=== PATIENT | female | born 1940 | race Caucasian/White ===

== ENCOUNTER 2019-03-10 15:17 | Inpatient (IN) | payer OTHER, SELFPAY ==
[2019-03-10] VITALS (15 sets, daily range): BP systolic 96–162; BP diastolic 46–87; PULSE 81–115; RESP 12–19; TEMP 36.6–37.6; O2SAT 94–99; BMI 25.4
--- NOTE | 2019-03-10 | PATH_ITS ---
[facility] Accession Number: [id number] . 01 Material submitted: . appendix - APPENDIX . 02 Diagnosis: Appendix, Appendectomy: Acute appendicitis with serositis. No evidence of dysplasia or malignancy. MRV/03/14/2019 . 02 Electronically signed: . Yolanda Gilmore MD, Pathologist NPI- [id number] . 01 Gross description: . Received in formalin, labeled appendix, is an intact appendix (length-7.1 cm, diameter-1.0 cm) with perales dull serosa and attached mesoappendix (up to 1.6 cm in depth). The resection margin is received stapled. The specimen is partially covered in dull perales flaky friable exudate. The lumen contains red-brown solid paste-like material. The wall is up to 0.3 cm thick. No nodules, masses or lesions are identified. The resection margin is inked black. Section code: (A1) resection margin en face and three additional district representative serial sections; (A2) one-half of the bivalved tip. ([id number]) /MRV . 02 Pathologist provided ICD-10: K35.80 . 02 CPT . 971854 Performed at: 01 [facility] [address], [place], [place] [id number] MD Duc Mosqueda MD Phone: [phone] Performed at: 02 [facility] [address] [place], [place] [id number] MD Yolanda Gilmore MD Phone: [phone]
--- NOTE | 2019-03-10 15:44 | DI.CT.S_ITS ---
PROCEDURE: CT ABDOMEN PELVIS W CON INDICATIONS: rlq pain, tachy TECHNIQUE: After the administration of intravenous contrast, 5 mm thick sections acquired from the diaphragm to the symphysis. 5 mm coronal and sagittal reformats were acquired. For radiation dose reduction, the following was used: automated exposure control, adjustment of mA and/or kV according to patient size. COMPARISON: [facility], , CHEST 2 VIEW, 09/16/2014, 19:56. FINDINGS: Image quality: Excellent. ABDOMEN: Lung bases: Lung bases are clear. Heart size is normal. A small hiatal hernia is incidentally noted. Solid organs: Liver is normal in size and enhancement. Gallbladder wall is not thickened. Biliary system is non dilated. Pancreas enhances normally. Spleen is normal in size and enhancement. No adrenal nodules. Kidneys demonstrate normal size and enhancement, without hydronephrosis. Simple appearing, nonenhancing bilateral renal cysts are seen, which measure water density. Peritoneum and bowel: In this patient with this given history, scrutiny is given to the appendix and the right lower quadrant. The appendix is abnormal and is fluid filled. It demonstrates a hyperenhancing wall. The appendix is dilated measuring 1 cm across its lumen. An appendicolith can be seen on series 2 image 54. There is surrounding inflammatory change seen. No free air is seen to suggest perforation. No loculated abscess is seen. There is mild wall thickening seen of the adjacent cecal wall and the adjacent distal ileum. No additional bowel wall thickening is seen. A moderate amount of stool is seen within the colon. No dilated loops of small bowel are in. Nodes and vessels: No retroperitoneal or mesenteric adenopathy by size criteria. Aorta and inferior vena cava are normal in size. Atherosclerotic calcification is noted. Miscellaneous: No ventral hernias. PELVIS: Genitourinary: Bladder wall thickness is normal. Miscellaneous: No inguinal hernias or adenopathy. 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 Bones: No suspicious bony lesions. No vertebral body compression fractures. Age-appropriate bony degenerative changes are seen. IMPRESSION: Acute appendicitis. No findings of perforation or abscess can be seen. Reactive wall thickening can be seen of the adjacent distal ileum and cecum. Incidental note is made of: Small hiatal hernia Simple appearing water density renal cysts Pelvic varices Atherosclerotic calcification Note: Findings relayed to MILTON Calderon via nurse Briones at 5:18 PM [place] time on March 10, 2019. Christin Dorado will call back if there any questions. Dictated by: Toby Granados M.D. on 03/10/2019 at 16:12 Approved by: Toby Granados M.D. on 03/10/2019 at 16:20
[2019-03-10 16:06] LABS: Add Manual Diff / Slide Review NO; Basophils Absolute Auto 0 /uL (0-100); Basophils Percent Auto 0.4 % (0-2); Eosinophils Absolute Auto 100 /uL (0-450); Eosinophils Percent Auto 1.7 % (2-4); Hematocrit 41.7 % (36-46); Hemoglobin 14.1 g/dL (12.0-16.0); Lymphocytes Absolute Auto 800 /uL (1100-4500); Lymphocytes Percent Auto 9.2 % (25-40); Mean Corpuscular HGB Conc 33.7 % (30-36); Mean Corpuscular Hemoglobin 29.8 PG (26-34); Mean Corpuscular Volume 88.4 fL (80-100); Monocytes Absolute Auto 700 /uL (0-900); Monocytes Percent Auto 7.9 % (3-14); Neutrophils Absolute Auto 7000 /uL (1500-7000); Neutrophils Percent Auto 80.8 % (50-75); Platelet Count 177 X10^3/uL (150-400); Red Blood Cell Count 4.72 X10^6/uL (4.0-5.2); Red Cell Distribution Width 13.5 % (11.6-14.8); White Blood Cell Count 8.7 X10^3/uL (4.5-11.0)
[2019-03-10] MEDS: SODIUM CHLORIDE 0.9% 1,000 ML 1000 ML IV (16:11)
[2019-03-10 16:18] LABS: Lactate (Lactic Acid) 0.9 mmol/L (0.7-2.1)
[2019-03-10 16:19] LABS: Alanine Aminotransferase 21 IU/L (9-52); Albumin 4.4 g/dL (3.5-5.0); Albumin Globulin Ratio 1.4 (1.0-2.8); Alkaline Phosphatase 50 U/L (38-126); Amylase 83 U/L (30-110); Aspartate Aminotransferase 31 IU/L (14-36); BUN Creatinine Ratio 23.3 (6-22); Bilirubin Total 0.7 mg/dL (0.2-1.3); Blood Urea Nitrogen 14 mg/dL (7-17); Calcium 9.5 mg/dL (8.4-10.2); Carbon Dioxide 24 mmol/L (22-32); Chloride 104 mmol/L (98-107); Estimated Glomerular Filt Rate > 60.0 mL/min (>60); Globulin 3.1 g/dL (1.7-4.1); Glucose 98 mg/dL (80-110); HEMOLYSIS 47 (0-50); Lipase 73 U/L (23-300); Potassium 4.2 mmol/L (3.4-5.1); Sodium 137 mmol/L (137-145); Total Protein 7.5 g/dL (6.3-8.2)
[2019-03-10 16:59] LABS: Procalcitonin < 0.05 ng/mL (<0.5)
--- NOTE | 2019-03-10 17:30 | ED.ABDPAIN ---
HPI - Abdominal Pain <MILTON Calderon-BC - Last Filed: 03/10/19 18:58> General Chief Complaint: Abdominal Pain Stated Complaint: states nasty pain lower right abd pain Time Seen by Provider: 03/10/19 15:32 Source: patient Mode of arrival: ambulatory Limitations: no limitations History of Present Illness HPI narrative: The patient is a 78-year-old female nonsmoker with a remote history of a tubal ligation in the 1970s that resulted in peritonitis who presents with a chief complaint of right lower quadrant pain since last night. She states she started having generalized belly pain that moved to her right lower quadrant last night. She states she is concerned about appendicitis. She states that she last ate a real meal at a p.m., last had spinach at about 10:00 a.m.. She has had 12 oz of water throughout the day but nothing else. She denies any chest pain, shortness of breath. She complains of nausea and general malaise. No vomiting. She had a loose bowel movement this morning. She complains of borderline the fever and chills. She denies any dysuria urgency or frequency. She denies any back pain or flank pain. Related Data Home Medications Medication Instructions Recorded Confirmed [facility] #8 5 tab PO PRN PRN 03/10/19 03/10/19 Osha 1 drp PO PRN PRN 03/10/19 03/10/19 Allergies Allergy/AdvReac Type Severity Reaction Status Date / Time Sulfa (Sulfonamide Allergy Severe Anaphylaxis Verified 03/10/19 15:52 Antibiotics) codeine Allergy Intermediate numb lips Verified 03/10/19 18:11 ALL CODONES... Allergy Unknown Uncoded 03/10/19 15:22 Review of Systems <ADE CalderonBC - Last Filed: 03/10/19 18:58> Review of Systems GENERAL: Denies chills, fatigue, malaise, fever, sweats. HEENT: Denies sinus pain, ear pain, sore throat, difficulty swallowing, dizziness. RESPIRATORY: Denies dyspnea, cough, wheezing, hemoptysis, sputum. CARDIOVASCULAR: Denies chest pain, palpitations, orthopnea, edema, GASTROINTESTINAL: See HPI : Denies dysuria, frequency, incontinence, hematuria, urinary retention. MUSCULOSKELETAL: denies weakness, joint pain, or bony pain SKIN: Denies rash, skin lesions, or other NEUROLOGIC: Denies weakness, headache, numbness, change in speech, confusion, seizures, incoordination. PSYCHIATRIC: No concerning psychosocial issues. 12 point review of systems is negative except for those stated above PFSH <SAMI Calderon - Last Filed: 03/10/19 18:58> Medical History History of pneumonia (Acute) Social History household members: none Smoking Status: Never smoker Social History household members: none Smoking Status: Never smoker Exam <SAMI Calderon - Last Filed: 03/10/19 18:58> Narrative Exam Narrative: GENERAL: This is a well-nourished, well-developed patient, appears to be in pain HEAD: Atraumatic. Normocephalic. No temporal or scalp tenderness. EYES: Pupils equal round and reactive. Extraocular motions intact. No scleral icterus. No injection or drainage. ENT: Nose without bleeding, purulent drainage or septal hematoma. Throat without erythema, tonsillar hypertrophy or exudate. Uvula midline. Airway patent. NECK: Trachea midline. No JVD or lymphadenopathy. Supple, nontender, no meningeal signs. CARDIOVASCULAR: Regular rate and rhythm RESPIRATORY: Clear to auscultation. Breath sounds equal bilaterally. No wheezes, rales, or rhonchi. No cough. No increased respiratory effort. No accessory muscle use. GASTROINTESTINAL: Abdomen tender to palpation right lower quadrant. Active bowel sounds. Guarding noted right lower quadrant. EXTREMITIES: No clubbing, cyanosis, or edema. No joint tenderness, effusion, or edema noted. BACK: Nontender without deformity or crepitance. No flank tenderness. NEURO: AOx3. SKIN: No rash or erythema. Initial Vital Signs Initial Vital Signs: Vital Signs Temperature 99.4 F 03/10/19 15:22 Pulse Rate 115 H 03/10/19 15:22 Respiratory Rate 18 03/10/19 15:22 Blood Pressure 151/87 H 03/10/19 15:22 Pulse Oximetry 98 03/10/19 15:22 <Erickson Rogers DO - Last Filed: 03/11/19 08:25> Initial Vital Signs Initial Vital Signs: Vital Signs Temperature 99.4 F 03/10/19 15:22 Pulse Rate 115 H 03/10/19 15:22 Respiratory Rate 18 03/10/19 15:22 Blood Pressure 151/87 H 03/10/19 15:22 Pulse Oximetry 98 03/10/19 15:22 Course <MILTON Calderon- - Last Filed: 03/10/19 18:58> Orders Ordered: Acetaminophen (Tylenol) 650 mg PO Q6HR PRN PRN Reason: As Needed for Fever/Mild Pain Last Admin: 03/11/19 04:08 Dose: 650 mg Admin: 03/10/19 20:57 Dose: 650 mg Dextrose/Sodium Chloride (Dextrose 5%-0.45% Ns) 1,000 mls @ 75 mls/hr IV CONT [facility] Last Admin: 03/10/19 20:57 Dose: 75 mls/hr Ibuprofen (Advil) 600 mg PO Q6HR PRN PRN Reason: As Needed for Fever/Mild Pain Last Admin: 03/10/19 22:59 Dose: 600 mg Morphine Sulfate (Morphine) 2 mg IV Q4HR PRN PRN Reason: Pain, Moderate (4-6) Last Admin: 03/11/19 08:03 Dose: 2 mg Ondansetron HCl (Zofran) 4 mg IV Q6HR PRN PRN Reason: Nausea And Vomiting Last Admin: 03/11/19 08:05 Dose: 4 mg Ranitidine HCl (Zantac) 150 mg PO BID [facility] Last Admin: 03/10/19 21:24 Dose: 150 mg Discontinued Medications Bupivacaine HCl/Epinephrine Bitart (Sensorcaine 0.5% W/ Epi (Pf)) 30 ml INJ INTRA-OP ONE Stop: 03/10/19 19:16 Last Admin: 03/10/19 19:22 Dose: 20 ml Sodium Chloride 1,000 ml/ (Bacitracin 50,000 unit) 0 ml IRR NOW ONE Stop: 03/10/19 19:16 Last Admin: 03/10/19 19:15 Dose: 1 irrig.soln Fentanyl (Sublimaze) 50 mcg IV Q5MIN PRN PRN Reason: Pain, Moderate (4-6) Last Admin: 03/10/19 20:04 Dose: 50 mcg Hydromorphone HCl (Dilaudid) 0.5 mg IV Q5MIN PRN PRN Reason: Pain, Moderate (4-6) Sodium Chloride (Normal Saline 0.9%) 1,000 mls @ 1,000 mls/hr IV BOLUS ONE Stop: 03/10/19 16:42 Last Infusion: 03/10/19 17:17 Dose: 0 mls/hr Admin: 03/10/19 16:11 Dose: 1,000 mls/hr Piperacillin/Tazobactam/Dextrose (Zosyn) 3.375 gm in 50 mls @ 100 mls/hr IV NOW ONE Stop: 03/10/19 18:09 Last Infusion: 03/10/19 19:11 Dose: 100 mls/hr Admin: 03/10/19 19:02 Dose: 100 mls/hr Lactated Ringer's (Lactated Ringers) 1,000 mls @ 42 mls/hr IV CONT CARL Last Infusion: 03/10/19 20:28 Dose: 0 mls/hr Admin: 03/10/19 18:55 Dose: 42 mls/hr Acetaminophen (Ofirmev) 1,000 mg in 100 mls @ 400 mls/hr IV NOW ONE Stop: 03/10/19 20:09 Last Infusion: 03/10/19 19:35 Dose: 0 mls/hr Admin: 03/10/19 19:15 Dose: 400 mls/hr Morphine Sulfate (Morphine) 2 mg IV NOW ONE Stop: 03/10/19 17:28 Last Admin: 03/10/19 17:48 Dose: 2 mg Morphine Sulfate (Morphine) 2 mg IV Q4HR PRN PRN Reason: Pain, Moderate (4-6) Neomycin/Polymyxin/Bacitracin (Neosporin) 1 each TOP NOW ONE Stop: 03/10/19 19:16 Last Admin: 03/10/19 19:23 Dose: 1 each Ondansetron HCl (Zofran) 4 mg IV NOW ONE Stop: 03/10/19 17:28 Last Admin: 03/10/19 17:48 Dose: 4 mg Ondansetron HCl (Zofran) 4 mg IV NOW PRN PRN Reason: Nausea And Vomiting Oxycodone HCl (Percolone) 5 mg PO Q30MIN PRN PRN Reason: Mild or moderate pain Vital Signs - 8 hr 03/11/19 04:17 Temperature 97.3 F L Pulse Rate 94 H Respiratory Rate 16 Blood Pressure 136/78 Pulse Oximetry 98 <Erickson Rogers DO - Last Filed: 03/11/19 08:25> Orders Ordered: Acetaminophen (Tylenol) 650 mg PO Q6HR PRN PRN Reason: As Needed for Fever/Mild Pain Last Admin: 03/11/19 04:08 Dose: 650 mg Admin: 03/10/19 20:57 Dose: 650 mg Dextrose/Sodium Chloride (Dextrose 5%-0.45% Ns) 1,000 mls @ 75 mls/hr IV [facility] Last Admin: 03/10/19 20:57 Dose: 75 mls/hr Ibuprofen (Advil) 600 mg PO Q6HR PRN PRN Reason: As Needed for Fever/Mild Pain Last Admin: 03/10/19 22:59 Dose: 600 mg Morphine Sulfate (Morphine) 2 mg IV Q4HR PRN PRN Reason: Pain, Moderate (4-6) Last Admin: 03/11/19 08:03 Dose: 2 mg Ondansetron HCl (Zofran) 4 mg IV Q6HR PRN PRN Reason: Nausea And Vomiting Last Admin: 03/11/19 08:05 Dose: 4 mg Ranitidine HCl (Zantac) 150 mg PO BID [facility] Last Admin: 03/10/19 21:24 Dose: 150 mg Discontinued Medications Bupivacaine HCl/Epinephrine Bitart (Sensorcaine 0.5% W/ Epi (Pf)) 30 ml INJ INTRA-OP ONE Stop: 03/10/19 19:16 Last Admin: 03/10/19 19:22 Dose: 20 ml Sodium Chloride 1,000 ml/ (Bacitracin 50,000 unit) 0 ml IRR NOW ONE Stop: 03/10/19 19:16 Last Admin: 03/10/19 19:15 Dose: 1 irrig.soln Fentanyl (Sublimaze) 50 mcg IV Q5MIN PRN PRN Reason: Pain, Moderate (4-6) Last Admin: 03/10/19 20:04 Dose: 50 mcg Hydromorphone HCl (Dilaudid) 0.5 mg IV Q5MIN PRN PRN Reason: Pain, Moderate (4-6) Sodium Chloride (Normal Saline 0.9%) 1,000 mls @ 1,000 mls/hr IV BOLUS ONE Stop: 03/10/19 16:42 Last Infusion: 03/10/19 17:17 Dose: 0 mls/hr Admin: 03/10/19 16:11 Dose: 1,000 mls/hr Piperacillin/Tazobactam/Dextrose (Zosyn) 3.375 gm in 50 mls @ 100 mls/hr IV NOW ONE Stop: 03/10/19 18:09 Last Infusion: 03/10/19 19:11 Dose: 100 mls/hr Admin: 03/10/19 19:02 Dose: 100 mls/hr Lactated Ringer's (Lactated Ringers) 1,000 mls @ 42 mls/hr IV CONT CARL Last Infusion: 03/10/19 20:28 Dose: 0 mls/hr Admin: 03/10/19 18:55 Dose: 42 mls/hr Acetaminophen (Ofirmev) 1,000 mg in 100 mls @ 400 mls/hr IV NOW ONE Stop: 03/10/19 20:09 Last Infusion: 03/10/19 19:35 Dose: 0 mls/hr Admin: 03/10/19 19:15 Dose: 400 mls/hr Morphine Sulfate (Morphine) 2 mg IV NOW ONE Stop: 03/10/19 17:28 Last Admin: 03/10/19 17:48 Dose: 2 mg Morphine Sulfate (Morphine) 2 mg IV Q4HR PRN PRN Reason: Pain, Moderate (4-6) Neomycin/Polymyxin/Bacitracin (Neosporin) 1 each TOP NOW ONE Stop: 03/10/19 19:16 Last Admin: 03/10/19 19:23 Dose: 1 each Ondansetron HCl (Zofran) 4 mg IV NOW ONE Stop: 03/10/19 17:28 Last Admin: 03/10/19 17:48 Dose: 4 mg Ondansetron HCl (Zofran) 4 mg IV NOW PRN PRN Reason: Nausea And Vomiting Oxycodone HCl (Percolone) 5 mg PO Q30MIN PRN PRN Reason: Mild or moderate pain Vital Signs - 8 hr 03/11/19 04:17 Temperature 97.3 F L Pulse Rate 94 H Respiratory Rate 16 Blood Pressure 136/78 Pulse Oximetry 98 MDM - Abdominal Pain <Christin Dorado, QUALITY CONTROL TECH RAW MATERIALS-BC - Last Filed: 03/10/19 18:58> Lab Data Result diagrams: 03/10/19 16:01 03/10/19 16:01 Lab Results 03/10/19 03/10/19 03/10/19 Range/Units 16:01 16:01 16:01 WBC 8.7 (4.5-11.0) X10^3/uL RBC 4.72 (4.0-5.2) X10^6/uL Hgb 14.1 (12.0-16.0) g/dL Hct 41.7 (36-46) % MCV 88.4 (80-100) fL MCH 29.8 (26-34) PG MCHC 33.7 (30-36) % RDW 13.5 (11.6-14.8) % Plt Count 177 (150-400) X10^3/uL Neut % (Auto) 80.8 H (50-75) % Lymph % (Auto) 9.2 L (25-40) % [place] % (Auto) 7.9 (3-14) % Eos % (Auto) 1.7 L (2-4) % Baso % (Auto) 0.4 (0-2) % Neut # (Auto) 7000 (6391-6723) /uL Lymph # (Auto) 800 L (5234-8227) /uL [place] # (Auto) 700 (0-900) /uL Eos # (Auto) 100 (0-450) /uL Baso # (Auto) 0 (0-100) /uL Sodium 137 (137-145) mmol/L Potassium 4.2 (3.4-5.1) mmol/L Chloride 104 (98-107) mmol/L Carbon Dioxide 24 (22-32) mmol/L BUN 14 (7-17) mg/dL Creatinine 0.60 (0.52-1.04) mg/dL Estimated GFR > 60.0 (>60) mL/min BUN/Creatinine Ratio 23.3 H (6-22) Glucose 98 (80-110) mg/dL Lactate (0.7-2.1) mmol/L Calcium 9.5 (8.4-10.2) mg/dL Total Bilirubin 0.7 (0.2-1.3) mg/dL AST 31 (14-36) IU/L ALT 21 (9-52) IU/L Alkaline Phosphatase 50 (38-126) U/L Total Protein 7.5 (6.3-8.2) g/dL Albumin 4.4 (3.5-5.0) g/dL Globulin 3.1 (1.7-4.1) g/dL Albumin/Globulin Ratio 1.4 (1.0-2.8) Amylase 83 (30-110) U/L Lipase 73 (23-300) U/L Procalcitonin < 0.05 (<0.5) ng/mL 03/10/19 Range/Units 16:01 WBC (4.5-11.0) X10^3/uL RBC (4.0-5.2) X10^6/uL Hgb (12.0-16.0) g/dL Hct (36-46) % MCV (80-100) fL MCH (26-34) PG MCHC (30-36) % RDW (11.6-14.8) % Plt Count (150-400) X10^3/uL Neut % (Auto) (50-75) % Lymph % (Auto) (25-40) % [place] % (Auto) (3-14) % Eos % (Auto) (2-4) % Baso % (Auto) (0-2) % Neut # (Auto) (7073-1259) /uL Lymph # (Auto) (8422-1198) /uL [place] # (Auto) (0-900) /uL Eos # (Auto) (0-450) /uL Baso # (Auto) (0-100) /uL Sodium (137-145) mmol/L Potassium (3.4-5.1) mmol/L Chloride (98-107) mmol/L Carbon Dioxide (22-32) mmol/L BUN (7-17) mg/dL Creatinine (0.52-1.04) mg/dL Estimated GFR (>60) mL/min BUN/Creatinine Ratio (6-22) Glucose (80-110) mg/dL Lactate 0.9 (0.7-2.1) mmol/L Calcium (8.4-10.2) mg/dL Total Bilirubin (0.2-1.3) mg/dL AST (14-36) IU/L ALT (9-52) IU/L Alkaline Phosphatase (38-126) U/L Total Protein (6.3-8.2) g/dL Albumin (3.5-5.0) g/dL Globulin (1.7-4.1) g/dL Albumin/Globulin Ratio (1.0-2.8) Amylase (30-110) U/L Lipase (23-300) U/L Procalcitonin (<0.5) ng/mL Point of care testing: Urine Dip Bedside Urine Glucose Negative Bedside Urine Bilirubin - Negative Bedside Urine Ketone - Negative Urine Specific [place] 1.010 Bedside Urine Occult Blood - Negative Bedside Urine pH 7.5 Bedside Urine Protein - Negative Bedside Urine Urobilinogen - Negative Bedside Urine Nitrite - Negative Bedside Urine Leukocytes - Negative Esterase Imaging Data CT scan - abdomen: Radiologist's impression: [address] [address] [address] Scan Report Signed Patient: Julissa Puckett#: [id number] : 2Acct:[id number] Age/Sex: 78 / FDate of Service: 03/10/19 Loc: ED Accession Number: [id number] Procedure: CT abdomen pelvis w con Ordering Provider: Christin Dorado-NOAM PROCEDURE: CT ABDOMEN PELVIS W CON INDICATIONS: rlq pain, tachy TECHNIQUE: After the administration of intravenous contrast, 5 mm thick sections acquired from the diaphragm to the symphysis. 5 mm coronal and sagittal reformats were acquired. For radiation dose reduction, the following was used: automated exposure control, adjustment of mA and/or kV according to patient size. COMPARISON: [facility], , CHEST 2 VIEW, 09/16/2014, 19:56. FINDINGS: Image quality: Excellent. ABDOMEN: Lung bases: Lung bases are clear. Heart size is normal. A small hiatal hernia is incidentally noted. Solid organs: Liver is normal in size and enhancement. Gallbladder wall is not thickened. Biliary system is non dilated. Pancreas enhances normally. Spleen is normal in size and enhancement. No adrenal nodules. Kidneys demonstrate normal size and enhancement, without hydronephrosis. Simple appearing, nonenhancing bilateral renal cysts are seen, which measure water density. Peritoneum and bowel: In this patient with this given history, scrutiny is given to the appendix and the right lower quadrant. The appendix is abnormal and is fluid filled. It demonstrates a hyperenhancing wall. The appendix is dilated measuring 1 cm across its lumen. An appendicolith can be seen on series 2 image 54. There is surrounding inflammatory change seen. No free air is seen to suggest perforation. No loculated abscess is seen. There is mild wall thickening seen of the adjacent cecal wall and the adjacent distal ileum. No additional bowel wall thickening is seen. A moderate amount of stool is seen within the colon. No dilated loops of small bowel are in. Nodes and vessels: No retroperitoneal or mesenteric adenopathy by size criteria. Aorta and inferior vena cava are normal in size. Atherosclerotic calcification is noted. Miscellaneous: No ventral hernias. PELVIS: Genitourinary: Bladder wall thickness is normal. Miscellaneous: No inguinal hernias or adenopathy. 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 Bones: No suspicious bony lesions. No vertebral body compression fractures. Age-appropriate bony degenerative changes are seen. IMPRESSION: Acute appendicitis. No findings of perforation or abscess can be seen. Reactive wall thickening can be seen of the adjacent distal ileum and cecum. Incidental note is made of: Small hiatal hernia Simple appearing water density renal cysts Pelvic varices Atherosclerotic calcification Note: Findings relayed to MILTON Calderon via nurse Briones at 5:18 PM [place] time on March 10, 2019. Christin Dorado will call back if there any questions. Dictated by: Toby Granados M.D. on 03/10/2019 at 16:12 Approved by: Toby Granados M.D. on 03/10/2019 at 16:20 [facility] Narrative Medical decision making narrative: The patient is a 78-year-old female who presents with chief complaint of acute right lower quadrant pain. She does not have an elevated white blood cell count, lactate, procalcitonin. However she is tachycardic and has low-grade temperature. She does have an acute appendicitis on exam. I spoke with Dr. Gonzalez regarding the patient, who stated he would admit the patient bring her surgery. She was given Zosyn in the emergency department per his instructions. She was given small doses of morphine and Zofran for pain. The patient initially repeatedly declined pain medications. Discussed remaining NPO until surgery. Patient is in accordance and has no questions. To OR staff at 19:00 <Erickson Rogers DO - Last Filed: 03/11/19 08:25> Lab Data Lab Results 03/10/19 03/10/19 03/10/19 Range/Units 16:01 16:01 16:01 WBC 8.7 (4.5-11.0) X10^3/uL RBC 4.72 (4.0-5.2) X10^6/uL Hgb 14.1 (12.0-16.0) g/dL Hct 41.7 (36-46) % MCV 88.4 (80-100) fL MCH 29.8 (26-34) PG MCHC 33.7 (30-36) % RDW 13.5 (11.6-14.8) % Plt Count 177 (150-400) X10^3/uL Neut % (Auto) 80.8 H (50-75) % Lymph % (Auto) 9.2 L (25-40) % [place] % (Auto) 7.9 (3-14) % Eos % (Auto) 1.7 L (2-4) % Baso % (Auto) 0.4 (0-2) % Neut # (Auto) 7000 (9403-4096) /uL Lymph # (Auto) 800 L (6755-5073) /uL [place] # (Auto) 700 (0-900) /uL Eos # (Auto) 100 (0-450) /uL Baso # (Auto) 0 (0-100) /uL Sodium 137 (137-145) mmol/L Potassium 4.2 (3.4-5.1) mmol/L Chloride 104 (98-107) mmol/L Carbon Dioxide 24 (22-32) mmol/L BUN 14 (7-17) mg/dL Creatinine 0.60 (0.52-1.04) mg/dL Estimated GFR > 60.0 (>60) mL/min BUN/Creatinine Ratio 23.3 H (6-22) Glucose 98 (80-110) mg/dL Lactate (0.7-2.1) mmol/L Calcium 9.5 (8.4-10.2) mg/dL Total Bilirubin 0.7 (0.2-1.3) mg/dL AST 31 (14-36) IU/L ALT 21 (9-52) IU/L Alkaline Phosphatase 50 (38-126) U/L Total Protein 7.5 (6.3-8.2) g/dL Albumin 4.4 (3.5-5.0) g/dL Globulin 3.1 (1.7-4.1) g/dL Albumin/Globulin Ratio 1.4 (1.0-2.8) Amylase 83 (30-110) U/L Lipase 73 (23-300) U/L Procalcitonin < 0.05 (<0.5) ng/mL 03/10/19 Range/Units 16:01 WBC (4.5-11.0) X10^3/uL RBC (4.0-5.2) X10^6/uL Hgb (12.0-16.0) g/dL Hct (36-46) % MCV (80-100) fL MCH (26-34) PG MCHC (30-36) % RDW (11.6-14.8) % Plt Count (150-400) X10^3/uL Neut % (Auto) (50-75) % Lymph % (Auto) (25-40) % [place] % (Auto) (3-14) % Eos % (Auto) (2-4) % Baso % (Auto) (0-2) % Neut # (Auto) (4116-6160) /uL Lymph # (Auto) (4296-1282) /uL [place] # (Auto) (0-900) /uL Eos # (Auto) (0-450) /uL Baso # (Auto) (0-100) /uL Sodium (137-145) mmol/L Potassium (3.4-5.1) mmol/L Chloride (98-107) mmol/L Carbon Dioxide (22-32) mmol/L BUN (7-17) mg/dL Creatinine (0.52-1.04) mg/dL Estimated GFR (>60) mL/min BUN/Creatinine Ratio (6-22) Glucose (80-110) mg/dL Lactate 0.9 (0.7-2.1) mmol/L Calcium (8.4-10.2) mg/dL Total Bilirubin (0.2-1.3) mg/dL AST (14-36) IU/L ALT (9-52) IU/L Alkaline Phosphatase (38-126) U/L Total Protein (6.3-8.2) g/dL Albumin (3.5-5.0) g/dL Globulin (1.7-4.1) g/dL Albumin/Globulin Ratio (1.0-2.8) Amylase (30-110) U/L Lipase (23-300) U/L Procalcitonin (<0.5) ng/mL Point of care testing: Urine Dip Bedside Urine Glucose Negative Bedside Urine Bilirubin - Negative Bedside Urine Ketone - Negative Urine Specific [place] 1.010 Bedside Urine Occult Blood - Negative Bedside Urine pH 7.5 Bedside Urine Protein - Negative Bedside Urine Urobilinogen - Negative Bedside Urine Nitrite - Negative Bedside Urine Leukocytes - Negative Esterase Discharge Plan Departure Patient Disposition: Admitted As Inpatient Clinical Impression: Appendicitis Qualifiers: Appendicitis type: acute appendicitis Acute appendicitis type: unspecified acute appendicitis type Qualified Code(s): K35.80 - Unspecified acute appendicitis Discharge Date/Time: 03/10/19 19:09 Interventions: ED Discharge Assessment Last Done: 03/10/19 19:09 Admit Date/Time: 03/10/19 17:48 Admit Provider: Andrew Zhang <Erickson Rogers DO - Last Filed: 03/11/19 08:25> Cosign ED Attending Eduin Attestation: I was immediately available in the department for consultation. Documentation has been reviewed. I agree with assessment and plan.
[2019-03-10] MEDS: ONDANSETRON 4 MG/2 ML INJ IV (17:48)
[2019-03-10] MEDS: MORPHINE 2 MG/ML INJ IV (17:48)
--- NOTE | 2019-03-10 18:28 | PM.HP.1 ---
History of Present Illness Date Patient Seen: 03/10/19 Time Patient Seen: 18:28 Chief complaint: states nasty pain lower right abd pain Narrative: 78-year-old white female patient who has had a history of mid abdominal pain for 24 hours now radiated to the right lower quadrant and has a CT scan of the abdomen and pelvis done in the emergency department this afternoon which is consistent with uncomplicated acute appendicitis. She is receiving preoperative antibiotics as therapy and being prepared for urgent appendectomy Patient History Medical History History of pneumonia (Acute) Social History household members: none Smoking Status: Never smoker Family & Social History Social History: household members none Prior Living Arrangements RV Safety & Behavioral: Feels Safe in Current Yes Environment Been Physically Hurt or No Threatened By a Person Suicidal Ideation Description None Suicide Plan Description No Plan Tobacco & Substance use: Smoking Status Never smoker alcohol intake frequency a few times a month Substance Use Type does not use Meds Home Medications Medication Instructions Recorded Confirmed Type [facility] #8 5 tab PO PRN PRN 03/10/19 03/10/19 History Osha 1 drp PO PRN PRN 03/10/19 03/10/19 History Allergies Allergy/AdvReac Type Severity Reaction Status Date / Time Sulfa (Sulfonamide Allergy Severe Anaphylaxis Verified 03/10/19 15:52 Antibiotics) codeine Allergy Intermediate numb lips Verified 03/10/19 18:11 ALL CODONES... Allergy Unknown Uncoded 03/10/19 15:22 Review of Systems Review of Systems All systems reviewed & are unremarkable except as noted in HPI and below Exam Vital Signs (past 8 hours): - 03/10/19 15:22 03/10/19 18:00 Temperature 99.4 F Pulse Rate 115 H 91 H Respiratory Rate 18 12 Blood Pressure 151/87 H Blood Pressure [Left Arm] 162/62 H Pulse Oximetry 98 99 Oxygen Delivery Method Room Air Narrative Exam Narrative: The patient is alert and oriented x3 she has a slight temperature 99.4? Ears nose and throat are normal Neck no adenopathy Lungs are clear with no rales or wheezes Heart regular rhythm no murmur no gallop Abdomen is exquisitely tender in the right lower quadrant with guarding and early rebound tenderness there is positive Rovsing sign The remaining physical is unremarkable Objective Labs Result Diagrams: 03/10/19 16:01 03/10/19 16:01 Labs: Laboratory Results - last 24 hr 03/10/19 03/10/19 03/10/19 16:01 16:01 16:01 WBC 8.7 RBC 4.72 Hgb 14.1 Hct 41.7 MCV 88.4 MCH 29.8 MCHC 33.7 RDW 13.5 Plt Count 177 Neut % (Auto) 80.8 H Lymph % (Auto) 9.2 L Adams % (Auto) 7.9 Eos % (Auto) 1.7 L Baso % (Auto) 0.4 Neut # (Auto) 7000 Lymph # (Auto) 800 L Adams # (Auto) 700 Eos # (Auto) 100 Baso # (Auto) 0 Sodium 137 Potassium 4.2 Chloride 104 Carbon Dioxide 24 BUN 14 Creatinine 0.60 Estimated GFR > 60.0 BUN/Creatinine Ratio 23.3 H Glucose 98 Lactate Calcium 9.5 Total Bilirubin 0.7 AST 31 ALT 21 Alkaline Phosphatase 50 Total Protein 7.5 Albumin 4.4 Globulin 3.1 Albumin/Globulin Ratio 1.4 Amylase 83 Lipase 73 Procalcitonin < 0.05 03/10/19 16:01 WBC RBC Hgb Hct MCV MCH MCHC RDW Plt Count Neut % (Auto) Lymph % (Auto) Adams % (Auto) Eos % (Auto) Baso % (Auto) Neut # (Auto) Lymph # (Auto) Adams # (Auto) Eos # (Auto) Baso # (Auto) Sodium Potassium Chloride Carbon Dioxide BUN Creatinine Estimated GFR BUN/Creatinine Ratio Glucose Lactate 0.9 Calcium Total Bilirubin AST ALT Alkaline Phosphatase Total Protein Albumin Globulin Albumin/Globulin Ratio Amylase Lipase Procalcitonin Assessment & Plan Assessment & Plan narrative: Patient has acute uncomplicated appendicitis with no abscess noted on CT scan she is received IV Zosyn and is being prepared for urgent appendectomy patient understands the nature of her problem and agrees to the plan and urgent surgery and has no further questions Quality VTE Deep Vein Thrombosis/Pulmonary Embolism Present on Admission: No
[2019-03-10] MEDS: LACTATED RINGERS 1,000 ML 42 ML IV (18:55)
[2019-03-10] MEDS: PIPERACILLIN-TAZO 3.375 GM/50 ML FROZ.PIGGY IV (19:02)
[2019-03-10] MEDS: SODIUM CHLORIDE IRRIG SOLUTION 1,000 ML, BACITRACIN 50,000 UNIT IRR (19:15)
[2019-03-10] MEDS: ACETAMINOPHEN IV 1,000 MG/100 ML VIAL 400 MG IV (19:15)
[2019-03-10] MEDS: BUPIVACAINE 0.5% W/ EPI (PF) VIAL 30 ML INJ (19:22)
[2019-03-10] MEDS: NEOMYCIN/POLYMYXIN/BACITRA UD OINT 1 EACH TOP (19:23)
--- NOTE | 2019-03-10 19:34 | SUR.OPER ---
Supine on padded OR bed, head on pillow, arms secured on padded arm boards at <90 degrees abduction, legs uncrossed, safety belt at thigh, tape over blanket over lower legs.
--- NOTE | 2019-03-10 19:39 | PM.OP.1 ---
Operative Date/Time/Diagnoses Date of procedure: 03/10/19 Time of procedure: 19:39 Pre-op diagnosis: Acute uncomplicated appendicitis Post-op diagnosis: same Procedure & Clinicians Procedure: Appendectomy Same procedure as scheduled: Yes Indications: Acute appendicitis Surgeon: Andrew Zhang Click Yes if Unassisted: Yes Anesthesia Type: General Operative Notes Findings: Acute suppurative appendicitis without rupture without abscess Closure Type: primary Specimen(s): other (Appendix and cultures) Estimated Blood Loss (mL): 50 Blood products transfused: none Procedure in detail: Patient was properly identified during surgical pause given a general endotracheal anesthetic prepped and draped in sterile fashion exposure of the right lower quadrant of the abdomen. A standard Yohannes-Isidro incision was made over McBurney's point. The oblique muscles were split and agreed iron fashion the peritoneum was elevated and entered so as to avoid injury to the underlying structures. The cecum was rotated into the wound the appendix was acutely inflamed covered with fibrin and it was cultured there is no abscess. The appendix was elevated the mesoappendix divided between clamps the vessels ligated with 2 0 Vicryl ties the base the appendix was then closed with a TA 30? stapler and the appendix was removed above the staple line which was intact. The pelvis was irrigated with a L of bacitracin containing saline and aspirated dry there was no bleeding and no purulence the peritoneum closed with running 2 0 Vicryl. The fascia closed with 1. Maxon. The subcu irrigated with bacitracin saline. The skin desi dartos was applied 0.5% Marcaine was administered in the subcu space. Sutures very well tolerated. Complications: none Disposition: PACU
[2019-03-10] MEDS: fentaNYL 100 MCG/2 ML INJ 50 MCG IV (20:04)
--- NOTE | 2019-03-10 20:42 | SUR.OPER ---
Stable PACU stay, medicated for pain with Fentanyl, pain to a tolerable level to AC on room air, left with LIANG Meeks and left in stable condition.
--- NOTE | 2019-03-10 20:52 | PC.NURSE ---
Addendum entered by Lizette Baugh R.N. 03/10/19 22:14: Resting quietly in bed with eyes closed. No signs of distress or discomfort. Pt requests scd's be off as they inhibit ability to rest. Pump turned off and pt was encouraged to ankle wave and calf pump while awake. Provided return demonstration. Original Note: Pt to room 213 from O.R. drowsy, but rousable. Rates incisional pain 8/10 while calmly lying in bed. Opens eyes occasionally. Denies nausea. Ice chips provided. Instructed on splinting of abdomen to manage pain. Small amount fresh blood noted on gauze dressing RLQ contained within tegaderm dressing. BL calf scd's in place. Ice to incision. Bowel tones absent with soft and puffy abdomen.
[2019-03-10] MEDS: ACETAMINOPHEN 325 MG TABLET 650 MG PO (20:57)
[2019-03-10] MEDS: DEXTROSE 5%-0.45% NS 1,000 ML 75 ML IV (20:57)
[2019-03-10] MEDS: IBUPROFEN 600 MG TABLET PO (22:59)
[2019-03-11] VITALS (7 sets, daily range): BP systolic 134–169; BP diastolic 60–103; PULSE 66–95; RESP 16–18; TEMP 36.3–37.2; O2SAT 97–100; BMI 25.2
[2019-03-11] MEDS: ACETAMINOPHEN 325 MG TABLET 650 MG PO (04:08)
[2019-03-11] MEDS: MORPHINE 2 MG/ML INJ IV ×2 (08:03→22:41)
[2019-03-11] MEDS: ONDANSETRON 4 MG/2 ML INJ IV ×2 (08:05→22:40)
--- NOTE | 2019-03-11 09:26 | PM.PN.1 ---
Subjective Date Patient Seen: 03/11/19 Time Patient Seen: 09:26 Interval history: Patient is roughly 12 hours post open appendectomy for acute uncomplicated appendicitis. This morning she has considerable nausea and has vomited. She is not passing flatus or stool yet. She has improved with IV Zofran. Exam Vital Signs (past 8 hours): - 03/11/19 04:17 03/11/19 07:35 Temperature 97.3 F L 97.8 F Pulse Rate 94 H 86 Respiratory Rate 16 16 Blood Pressure 136/78 169/74 H Pulse Oximetry 98 98 Oxygen Delivery Method Nasal Cannula Oxygen Flow Rate 2 Narrative Exam Narrative: Patient is resting in bed fairly comfortable now after receiving IV Zofran and morphine. She had vomited earlier. End-stage states that she feels better after that. She is afebrile. Abdomen is somewhat distended. Bowel sounds are quiet. Dressing is dry and intact. Objective Labs Result Diagrams: 03/10/19 16:01 03/10/19 16:01 Labs: Laboratory Results - last 24 hr 03/10/19 03/10/19 03/10/19 16:01 16:01 16:01 WBC 8.7 RBC 4.72 Hgb 14.1 Hct 41.7 MCV 88.4 MCH 29.8 MCHC 33.7 RDW 13.5 Plt Count 177 Neut % (Auto) 80.8 H Lymph % (Auto) 9.2 L Claiborne % (Auto) 7.9 Eos % (Auto) 1.7 L Baso % (Auto) 0.4 Neut # (Auto) 7000 Lymph # (Auto) 800 L Cla[place]orne # (Auto) 700 Eos # (Auto) 100 Baso # (Auto) 0 Sodium 137 Potassium 4.2 Chloride 104 Carbon Dioxide 24 BUN 14 Creatinine 0.60 Estimated GFR > 60.0 BUN/Creatinine Ratio 23.3 H Glucose 98 Lactate Calcium 9.5 Total Bilirubin 0.7 AST 31 ALT 21 Alkaline Phosphatase 50 Total Protein 7.5 Albumin 4.4 Globulin 3.1 Albumin/Globulin Ratio 1.4 Amylase 83 Lipase 73 Procalcitonin < 0.05 03/10/19 16:01 WBC RBC Hgb Hct MCV MCH MCHC RDW Plt Count Neut % (Auto) Lymph % (Auto) Claiborne % (Auto) Eos % (Auto) Baso % (Auto) Neut # (Auto) Lymph # (Auto) Claiborne # (Auto) Eos # (Auto) Baso # (Auto) Sodium Potassium Chloride Carbon Dioxide BUN Creatinine Estimated GFR BUN/Creatinine Ratio Glucose Lactate 0.9 Calcium Total Bilirubin AST ALT Alkaline Phosphatase Total Protein Albumin Globulin Albumin/Globulin Ratio Amylase Lipase Procalcitonin Assessment & Plan Assessment & Plan narrative: Patient has adynamic ileus after appendectomy for uncomplicated appendicitis. I have converted her from an observation bed patient to an admission. I suspect her ileus will resolve soon. We will continue IV fluids. Quality VTE Deep Vein Thrombosis/Pulmonary Embolism Present on Admission: No
[2019-03-11] MEDS: DEXTROSE 5%-0.45% NS 1,000 ML 75 ML IV (10:52)
--- NOTE | 2019-03-11 13:31 | CM.DANOTE ---
Discharge Planning/Care Management DCPlan: assessment: Case received, EMR reviewed, spoke this morning with Dr. Gonzalez re POC and met now with pt. Introduced self and role. Pt is a 78 year old female who admitted yesterday evening with R abdominal pain. She dx with acute appendicitis and taken urgently to OR by Dr. Zhang for an open appendectomy (without rupture or abscess). Dr. Zhang stated this morning that he expected pt to be able to go home but instead he found her nauseated and vomiting and with post op ileus. He said he was keeping her in the hospital and changing her admission status to INPT. (this is now confirmed by UR RN Duc: INPT admission status as of 03/11.) Payer: [employer]. PCP: Dr. Santacruz/Key. Pt states she is beginning to feel better now but was shocked at how poorly she felt this morning. She is able to be up and independent in her room. She confirms her mailing address is a PMB (private mail box) on [address] and that she she lives in a camper and a sailboat. She has friends in [facility] who have fixed up a room for her so that she can recover before returning to her boat. Pt also has friends in [place] who are checking in on her. P: home setting/friends when stable for same. Will follow prn for any d/c needs that may arise. CM Discharge Assessment Start: 03/11/19 13:29 Freq: Status: Active Protocol: Document 03/11/19 13:30 ITV (Rec: 03/11/19 13:31 ITV [id number]) Discharge Planning Assessment Advance Directives? No History Provided By Patient Medical Record Has Patient been admitted in last 30 No days? Prior Living Arrangements RV Household Members none Independent with ADL's Yes Is patient alert and oriented? Yes Whiteboard Updated in Patient Room with Yes name and ext. # of Trucking Manager Review Status In Process Next Review Type Continued Stay Review
--- NOTE | 2019-03-11 14:01 | PC.NURSE ---
1400 Pt resting in bed, has been up in gallegos for ambulation. Pt refuses Lovenox or Zantac. Agrees to be mobile, oob frequently. Inst on use of call light for assistance.
--- NOTE | 2019-03-11 14:32 | PC.NURSE ---
1100 Pt requests to keep IVF off, agrees to keep the saline lock though. Pt states taking in plenty of fluids orally.
--- NOTE | 2019-03-11 17:37 | PC.NURSE ---
Addendum entered by Lizette Baugh R.N. 03/11/19 22:24: Pt reinforces to FUEL CELL REPAIRER desires morphine and zofran @ 2245 prior to shift change. Informed this literary writer does not want tylenol or ibuprofen or any other po meds. Up ad fior in room. Has had visitors this evening shift. Addendum entered by Lizette Baugh R.N. 03/11/19 18:10: Pt taking oral foods and fluids. Per dayshift report, pt has refused any further iv fluids. Original Note: Pt ambulating in hallway independently with FUEL CELL REPAIRER standby @ beginning of shift. Now in bed awake and alert. Refuses offer for pain meds stating pain worsens later at night and prefers medication prior to sleep. Denies nausea. Ice replaced to RLQ surgical site. Pt admits to passing flatus. Bowel tones are hypoactive, but present, with puffy abdomen. Dressing to RLQ with small amount shadowy drainage unchanged from last evening shift. BL calf scd's replaced per pt request. Encouraged to request pain meds as needed/desired.
[2019-03-11] MEDS: SODIUM CHLORIDE 0.9% FLUSH 10 ML IV (22:41)
--- NOTE | 2019-03-11 23:40 | PC.NURSE ---
Addendum entered by Arely Sevilla R.N. 03/12/19 04:29: States pain is currently 5/10 with movement and requesting Morphine. Discussed other options since she is expecting to discharge later today but states I don't take those things. States she will not need Morphine once discharged as will be taking Tumeric and using CBD cream. Addendum entered by Arely Sevilla R.N. 03/12/19 00:53: Evening RN reports IVF was stopped as patient refusing to have them infusing and is taking good po intake. Patient verifies her refusal. Original Note: Patient is alert and oriented. Breath sounds diminished but CTA with RA sat of 98%. HRR. BP elevated at 141/71; has been trending higher. Denies nausea. BT hypoactive but states she has been passing flatus. Denies dysuria, frequency or urgency. Independent with mobility. Dressing to RLQ of abdomen is CDI. States pain is 2/10; had Morphine just prior to shift change and states she is tolerating pain at this time. States she does not want to wear SCD's as has been up walking in gallegos and up to bathroom; verbalizes necessity to ankle wave when awake. Fall risk score is low.
[2019-03-12] MEDS: MORPHINE 2 MG/ML INJ IV (04:23)
[2019-03-12] MEDS: SODIUM CHLORIDE 0.9% FLUSH 10 ML IV (04:24)
[2019-03-12 04:27] VITALS: BP 159/69; PULSE 95; RESP 18; TEMP 37.2; O2SAT 97
[2019-03-12 07:00] VITALS: O2SAT 98
[2019-03-12 08:00] VITALS: BP 142/73; PULSE 75; RESP 18; TEMP 36.6; O2SAT 100
--- NOTE | 2019-03-12 08:29 | P.DS_ITS ---
History of Present Illness Chief complaint: states nasty pain lower right abd pain Discharge Providers Date of admission: 03/11/19 09:23 Discharge Date: 03/12/19 Discharge provider: Osiel Justice Summary Discharge Diagnosis: acute nonperforated appendicitis Hospital Course: 78 yo woman presented to hospital with progressive RLQ pain. She was found to have acute appendicitis and was taken to OR for open appende ctomy. Appendix quite inflamed but nonperforated. Post op pt did well with resolution of pain, tolerated general diet, passing flatus, ambulating easily. Status at Discharge Cognitive/behavioral status at discharge: oriented Functional status at discharge: independent ambulation Overall status at discharge: patient is progressing back to baseline Time Spent with Patient Less than 30 minutes Exam Vital Signs (past 8 hours): - 03/12/19 04:27 03/12/19 08:00 Temperature 98.9 F 97.8 F Pulse Rate 95 H 75 Respiratory Rate 18 18 Blood Pressure 159/69 H 142/73 H Pulse Oximetry 97 100 Oxygen Delivery Method Room Air Oxygen Flow Rate 0 Narrative Exam Narrative: NAD, looks well breathing easily RRR Abd soft, minimally tender, wound CDI periphery warm Objective Labs Result Diagrams: 03/10/19 16:01 03/10/19 16:01 Discharge Plan Discharge Plan Patient Disposition: Home Discharge comment: You are healing well and can now go home Discharge Med Rec/Prescriptions Prescriptions: New acetaminophen 325 mg Tablet 650 mg PO Q6HR PRN (Reason: As Needed For Fever/Mild Pain) Qty: 30 RF: 0 oxycodone 5 mg tablet See Rx Instructions .ROUTE .COMPLEX PRN (Reason: Pain) Qty: 12 RF: 0 polyethylene glycol 3350 17 gram powder in packet 17 g PO BID Qty: 14 RF: 0 Continued [place]ands #8 5 tab PO PRN PRN (Reason: leg cramps) RF: 0 Osha 1 drp PO PRN PRN (Reason: germs) RF: 0 Follow up/Referrals: Osiel Justice MD [Physician] - (call for follow up in 10-14days) Provider Discharge Instructions Diet: Diet as Tolerated Activity: light activity for next week. Then all normal activity OK. No lifting over 15lbs however for 4 weeks. OK to shower today. OK to bathe/immerse in water in 2 weeks Skin/Wound/Dressing Care Report to your healthcare provider any signs of infection, such as:: chills, fever and increased pain Visit Report/Discharge Packet Instructions: DI for an Appendectomy Stand Alone Forms: Surgery Discharge Visit Report Forms: Stroke Signs & Symptoms Discharge Data Attending Provider: Andrew Zhang Admit Date/Time: 03/11/19 09:23 Quality VTE Deep Vein Thrombosis/Pulmonary Embolism Present on Admission: No
--- NOTE | 2019-03-12 08:39 | CM.DPC ---
DCP: continued: pt now with d/c orders for home setting. She will be recovering at the home of a friend in [place]. Will follow prn until pt leaves.
--- NOTE | 2019-03-12 09:59 | PC.NURSE ---
Am shift Pt is a/o x4, ambulating indep in halls. Rates pain 1/10 controllable with movement and breathing. Declines pain control. Would like to shower today. Dr Zamora into see Pt and initiate discharge. Pt agreeable. IV removed. Flatus + no BM post op. Incision TURBINE ENGINEER, 5 desi visable, f/u appt made.
== END 2019-03-12 12:31 | disposition home or self-care (01) | DRG 342 ==
LOC: ED 17:48 → AC 19:02
PROVIDERS: Admitting Provider Surgery; Emergency Provider Nurse Practitioner Family; Visit Provider Surgery
PROC: 0DTJ0ZZ Resection of Appendix, Open Approach (ICD-10-PCS; CPT 44950; principal; 2019-03-10 18:35)
DX: K35.80 Unspecified acute appendicitis (principal); K56.0 Paralytic ileus
CPT/HCPCS: 36591; 44950; 74177; 80053; 81003; 82150; 83605; 83690; 84145; 85025; 87070; 87075; 87205; 96361; 96374; 96375; 99221; 99283; 99285; G0378; J0131; J1100; J1885; J2250; J2270; J2405; J2543; J2704; J3010; Q9967

== ENCOUNTER 2021-08-27 21:07 | Emergency (ER) | payer OTHER, SELFPAY ==
[2019-03-12 09:46] VITALS: BMI 25.2
[2021-08-27] VITALS (10 sets, daily range): BP systolic 145–195; BP diastolic 64–80; PULSE 79–98; RESP 17; TEMP 36.7; O2SAT 94–100; BMI 23.8
[2021-08-27 21:34] LABS: COVID19 -Nasal RAPID POSITIVE (Negative)
--- NOTE | 2021-08-27 22:07 | ED.WEAKNESS ---
HPI - Weakness <Lilly Mclain DO - Last Filed: 08/30/21 18:21> General Chief complaint: Weakness Stated complaint: thinks she has covid Time Seen by Provider: 08/27/21 22:00 Source: patient and EMS Mode of arrival: EMS Limitations: no limitations History of Present Illness HPI Narrative: Patient is a 80-year-old is female with history of Ebstein Mckoy, approximated fluid presenting today with what she knows is COVID. She says that she has had symptoms for the last 3 weeks she has help take care of patient's the people who have COVID. She lives alone in her still both her. She says that she is unable to care for herself eat or drink. She feels like she help in each be placed in a care facility. She feels like she is dehydrated the with. She is generally weak. She says that she no longer is having fever and cannot take Tylenol or Motrin for any way. She initially had some diarrhea a few weeks ago but that has stopped. She has no nausea or vomiting. She just generally feels weak and tired. She says she has been unable to base and would like to shower. Related Data Home Medications Medication Instructions Recorded Confirmed [facility] #[id number] 5 tab PO PRN PRN 03/10/19 03/27/19 Osha 1 drp PO PRN PRN 03/10/19 03/27/19 Previous Rx's Medication Instructions Recorded acetaminophen 325 mg tablet 650 mg PO Q6HR PRN #30 tab 03/12/19 oxycodone 5 mg tablet See Rx Instructions .ROUTE 03/12/19 .COMPLEX PRN #12 tab polyethylene glycol 3350 17 gram 17 g PO BID #14 each 03/12/19 oral powder packet Allergies Allergy/AdvReac Type Severity Reaction Status Date / Time Sulfa (Sulfonamide Allergy Severe Anaphylaxis Verified 03/27/19 09:41 Antibiotics) codeine Allergy Intermediate numb lips Verified 03/27/19 09:41 ALL CODONES... Allergy Unknown Uncoded 03/27/19 09:41 Review of Systems <Lilly Mclain DO - Last Filed: 08/30/21 18:21> Review of Systems ROS Unobtainable: All systems reviewed & are unremarkable except as noted in HPI and below Constitutional Constitutional: Reports anorexia, Reports chills, Reports fatigue, Denies headache(s), Denies increased appetite and Reports lethargy Eyes Eyes: Denies eye discharge ENT Ears, Nose, Mouth, and Throat: Denies headache(s) and Denies sore throat Cardiovascular Cardiovascular: Denies chest pain and Denies irregular heart rhythm Respiratory Respiratory: Reports cough Genitourinary Genitourinary: Denies urinary incontinence and Denies urinary urgency Musculoskeletal Musculoskeletal: Denies back pain and Reports myalgias Integumentary/Breasts Skin/Breast: Denies rash Neurologic Neurologic: Denies headache(s) Endocrine Endocrine: Reports fatigue Patient History <Lilly Mclain DO - Last Filed: 08/30/21 18:21> Medical History (Updated 08/28/21 @ 07:35 by Ian Olsen DO) History of pneumonia Hx of peritonitis Hypothyroid Surgical History (Updated 03/27/19 @ 09:49 by Magdalena Beasley RN) Hx of appendectomy Hx of tubal ligation Social History (Updated 03/27/19 @ 09:51 by Magdalena Beasley RN) household members: none occupational status: employed Smoking Status: Never smoker alcohol intake: current Smoking Status: Never smoker alcohol intake frequency: a few times a month Substance Use Type: does not use Exam <Lilly Mclain DO - Last Filed: 08/30/21 18:21> Initial Vital Signs Initial Vital Signs: Vital Signs Temperature 98.0 F 08/27/21 21:24 Pulse Rate 98 H 08/27/21 21:24 Respiratory Rate 17 08/27/21 21:24 Blood Pressure 195/80 H 08/27/21 21:24 Pulse Oximetry 100 08/27/21 21:24 GENERAL: 80-year-old female who week alert HEENT: Head atraumatic,EOMI, pupils reactive, face symmetric, moist mucous membranes CARDIOVASCULAR: Regular rate and rhythm without murmurs, rubs or gallops. RESPIRATORY: Breath sounds equal bilaterally, no wheezes rales or rhonchi. ABDOMEN: Soft, nontender. Normoactive bowel sounds all 4 quadrants. No guarding or rebound. EXTREMITIES: Normal range of motion, no clubbing or edema. Neurovascularly intact NEUROLOGICAL: Alert and oriented x4.Normal gait and speech. SKIN: Warm, dry, no laceration, no petechiae, no rashes or lesions. <Ian Olsen DO - Last Filed: 09/03/21 00:06> Initial Vital Signs Initial Vital Signs: Vital Signs Temperature 98.0 F 08/27/21 21:24 Pulse Rate 98 H 08/27/21 21:24 Respiratory Rate 17 08/27/21 21:24 Blood Pressure 195/80 H 08/27/21 21:24 Pulse Oximetry 100 08/27/21 21:24 Course <Lilly Mclain DO - Last Filed: 08/30/21 18:21> Orders Ordered: Discontinued Medications Sodium Chloride (Normal Saline 0.9%) 1,000 mls @ 1,000 mls/hr IV BOLUS ONE Stop: 08/27/21 23:20 Last Infusion: 08/28/21 00:00 Dose: 0 mls/hr Documented by: Admin: 08/27/21 22:32 Dose: 1,000 mls/hr Documented by: CRISTOBAL Vital Signs Vital signs: Vital Signs - 8 hr 08/27/21 23:30 08/28/21 00:41 08/28/21 00:48 Pulse Rate 79 88 84 Respiratory Rate Blood Pressure 160/72 H 176/74 H Pulse Oximetry 98 97 96 08/28/21 01:29 08/28/21 01:30 08/28/21 01:48 Pulse Rate 111 H 112 H 86 Respiratory Rate 20 Blood Pressure 169/79 H Pulse Oximetry 95 96 98 08/28/21 02:00 08/28/21 02:30 08/28/21 03:00 Pulse Rate 105 H 94 H 92 H Respiratory Rate Blood Pressure Pulse Oximetry 94 94 94 08/28/21 03:30 08/28/21 04:00 08/28/21 04:30 Pulse Rate 100 H 102 H 101 H Respiratory Rate Blood Pressure Pulse Oximetry 94 95 94 08/28/21 05:00 08/28/21 05:27 08/28/21 05:30 Pulse Rate 72 78 83 Respiratory Rate 18 Blood Pressure 166/71 H 153/69 H Pulse Oximetry 94 97 95 <Ian Olsen DO - Last Filed: 09/03/21 00:06> Orders Ordered: Discontinued Medications Sodium Chloride (Normal Saline 0.9%) 1,000 mls @ 1,000 mls/hr IV BOLUS ONE Stop: 08/27/21 23:20 Last Infusion: 08/28/21 00:00 Dose: 0 mls/hr Documented by: Admin: 08/27/21 22:32 Dose: 1,000 mls/hr Documented by: CRISTOBAL Vital Signs Vital signs: Vital Signs - 8 hr 08/27/21 23:30 08/28/21 00:41 08/28/21 00:48 Pulse Rate 79 88 84 Respiratory Rate Blood Pressure 160/72 H 176/74 H Pulse Oximetry 98 97 96 08/28/21 01:29 08/28/21 01:30 08/28/21 01:48 Pulse Rate 111 H 112 H 86 Respiratory Rate 20 Blood Pressure 169/79 H Pulse Oximetry 95 96 98 08/28/21 02:00 08/28/21 02:30 08/28/21 03:00 Pulse Rate 105 H 94 H 92 H Respiratory Rate Blood Pressure Pulse Oximetry 94 94 94 08/28/21 03:30 08/28/21 04:00 08/28/21 04:30 Pulse Rate 100 H 102 H 101 H Respiratory Rate Blood Pressure Pulse Oximetry 94 95 94 08/28/21 05:00 08/28/21 05:27 08/28/21 05:30 Pulse Rate 72 78 83 Respiratory Rate 18 Blood Pressure 166/71 H 153/69 H Pulse Oximetry 94 97 95 MDM - Weakness <Lilly Mclain, - Last Filed: 08/30/21 18:21> Lab Data Result diagrams: 08/27/21 22:46 08/27/21 22:46 Labs: Lab Results 08/27/21 08/27/21 08/27/21 Range/Units 21:10 22:46 22:46 WBC 6.6 (4.5-11.0) X10^3/uL RBC 4.66 (4.0-5.2) X10^6/uL Hgb 13.5 (12.0-16.0) g/dL Hct 39.9 (36-46) % MCV 85.5 (80-100) fL MCH 29.0 (26-34) PG MCHC 33.9 (30-36) % RDW 13.0 (11.6-14.8) % Plt Count 260 (150-400) X10^3/uL Neut % (Auto) 70.5 (50-75) % Lymph % (Auto) 15.6 L (25-40) % [place] % (Auto) 13.5 (3-14) % Eos % (Auto) 0.2 L (2-4) % Baso % (Auto) 0.2 (0-2) % Neut # (Auto) 4700 (2571-6459) /uL Lymph # (Auto) 1000 L (9603-1898) /uL [place] # (Auto) 900 (0-900) /uL Eos # (Auto) 0 (0-450) /uL Baso # (Auto) 0 (0-100) /uL Sodium 137 (137-145) mmol/L Potassium 4.1 (3.4-5.1) mmol/L Chloride 99 (98-107) mmol/L Carbon Dioxide 30 (22-32) mmol/L BUN 15 (7-17) mg/dL Creatinine 0.83 (0.52-1.04) mg/dL Estimated GFR > 60.0 (>60) mL/min BUN/Creatinine Ratio 18.1 (6-22) Glucose 108 (80-110) mg/dL Lactate (0.7-2.1) mmol/L Calcium 9.3 (8.4-10.2) mg/dL Total Bilirubin 0.6 (0.2-1.3) mg/dL AST 42 H (14-36) IU/L ALT 32 (<35) IU/L Alkaline Phosphatase 46 (38-126) U/L Total Protein 6.7 (6.3-8.2) g/dL Albumin 3.9 (3.5-5.0) g/dL Globulin 2.8 (1.7-4.1) g/dL Albumin/Globulin Ratio 1.4 (1.0-2.8) Procalcitonin (<0.5) ng/mL Urine Color Urine Appearance Urine pH (4.5-8.0) Ur Specific Wilkinson (1.000-1.035) Urine Protein (Negative) Urine Glucose (UA) (Negative) g/dL Urine Ketones (NEGATIVE) Urine Occult Blood (Negative) Urine Nitrate (Negative) Urine Bilirubin (NEGATIVE) Urine Urobilinogen (0.2) E.U./dL Ur Leukocyte Esterase (NEGATIVE) Urine RBC (0-5/HPF) Urine WBC (0-5/HPF) Ur Squamous Epith Cells (0-5/HPF) Urine Bacteria (None) Ur Culture Indicated? SARS-CoV-2 (PCR) Positive H (Negative) 08/27/21 08/27/21 08/27/21 Range/Units 22:46 22:46 23:00 WBC (4.5-11.0) X10^3/uL RBC (4.0-5.2) X10^6/uL Hgb (12.0-16.0) g/dL Hct (36-46) % MCV (80-100) fL MCH (26-34) PG MCHC (30-36) % RDW (11.6-14.8) % Plt Count (150-400) X10^3/uL Neut % (Auto) (50-75) % Lymph % (Auto) (25-40) % [place] % (Auto) (3-14) % Eos % (Auto) (2-4) % Baso % (Auto) (0-2) % Neut # (Auto) (5970-2515) /uL Lymph # (Auto) (5692-4071) /uL [place] # (Auto) (0-900) /uL Eos # (Auto) (0-450) /uL Baso # (Auto) (0-100) /uL Sodium (137-145) mmol/L Potassium (3.4-5.1) mmol/L Chloride (98-107) mmol/L Carbon Dioxide (22-32) mmol/L BUN (7-17) mg/dL Creatinine (0.52-1.04) mg/dL Estimated GFR (>60) mL/min BUN/Creatinine Ratio (6-22) Glucose (80-110) mg/dL Lactate 0.9 (0.7-2.1) mmol/L Calcium (8.4-10.2) mg/dL Total Bilirubin (0.2-1.3) mg/dL AST (14-36) IU/L ALT (<35) IU/L Alkaline Phosphatase (38-126) U/L Total Protein (6.3-8.2) g/dL Albumin (3.5-5.0) g/dL Globulin (1.7-4.1) g/dL Albumin/Globulin Ratio (1.0-2.8) Procalcitonin 0.05 (<0.5) ng/mL Urine Color Yellow Urine Appearance Clear Urine pH 7.5 (4.5-8.0) Ur Specific Wilkinson 1.015 (1.000-1.035) Urine Protein Trace H (Negative) Urine Glucose (UA) Negative (Negative) g/dL Urine Ketones Trace H (NEGATIVE) Urine Occult Blood Negative (Negative) Urine Nitrate Negative (Negative) Urine Bilirubin Negative (NEGATIVE) Urine Urobilinogen 0.2 (0.2) E.U./dL Ur Leukocyte Esterase Trace H (NEGATIVE) Urine RBC 0-1/hpf (0-5/HPF) Urine WBC 0-1/hpf (0-5/HPF) Ur Squamous Epith Cells 0-1 /hpf (0-5/HPF) Urine Bacteria Occasional (0-1) (None) Ur Culture Indicated? Specimen cultured SARS-CoV-2 (PCR) (Negative) Imaging Data Chest x-ray: Radiologist Impression: PROCEDURE:? XR CHEST 1V ? INDICATIONS:? covid ? TECHNIQUE:? One view of the chest was acquired.? ? COMPARISON:? [facility], , CHEST 2 VIEW, 09/16/2014, 19:56. ? FINDINGS:? ? Surgical changes and devices:? None.? ? Lungs and pleura:? Minimal left basilar atelectasis and or infiltrate.? Underlying diffuse chronic interstitial changes present. ? Mediastinum:? Mediastinal contours appear normal.? Heart size is normal.? Atherosclerotic vascular calcification noted in the aortic arch. ? Bones and chest wall:? No suspicious bony lesions.? Overlying soft tissues appear unremarkable.? ? IMPRESSION:? ? Minimal left basilar atelectasis and infiltrate with underlying diffuse chronic interstitial changes. ? ? Dictated by: David Clark M.D. on 08/27/2021 at 23:01 ? ? Approved by: David Clark M.D. on 08/27/2021 at 23:04 ? [facility] Narrative Medical decision making narrative: Patient has had COVID for about 2-3 weeks she certainly is not requiring oxygen at this time. Blood work is overall reassuring. His she is able to ambulate without any assistance. At this time I see no need for admission. However she states she needs help caring for herself at home she is not able to cook. She and her are is. She does have friends with a are not able to help her very much. [place] lives on a [place]. I called her friend Carole who was unable to pick her up said that she could not stay at her house. Taxi cab are not running at this time and will not take her because of her COVID status. Patient signed out to Dr. Olsen awaiting social Work evaluation <Ian Olsen, DO - Last Filed: 09/03/21 00:06> Lab Data Labs: Lab Results 08/27/21 08/27/21 08/27/21 Range/Units 21:10 22:46 22:46 WBC 6.6 (4.5-11.0) X10^3/uL RBC 4.66 (4.0-5.2) X10^6/uL Hgb 13.5 (12.0-16.0) g/dL Hct 39.9 (36-46) % MCV 85.5 (80-100) fL MCH 29.0 (26-34) PG MCHC 33.9 (30-36) % RDW 13.0 (11.6-14.8) % Plt Count 260 (150-400) X10^3/uL Neut % (Auto) 70.5 (50-75) % Lymph % (Auto) 15.6 L (25-40) % [place] % (Auto) 13.5 (3-14) % Eos % (Auto) 0.2 L (2-4) % Baso % (Auto) 0.2 (0-2) % Neut # (Auto) 4700 (6356-5049) /uL Lymph # (Auto) 1000 L (0709-9399) /uL [place] # (Auto) 900 (0-900) /uL Eos # (Auto) 0 (0-450) /uL Baso # (Auto) 0 (0-100) /uL Sodium 137 (137-145) mmol/L Potassium 4.1 (3.4-5.1) mmol/L Chloride 99 (98-107) mmol/L Carbon Dioxide 30 (22-32) mmol/L BUN 15 (7-17) mg/dL Creatinine 0.83 (0.52-1.04) mg/dL Estimated GFR > 60.0 (>60) mL/min BUN/Creatinine Ratio 18.1 (6-22) Glucose 108 (80-110) mg/dL Lactate (0.7-2.1) mmol/L Calcium 9.3 (8.4-10.2) mg/dL Total Bilirubin 0.6 (0.2-1.3) mg/dL AST 42 H (14-36) IU/L ALT 32 (<35) IU/L Alkaline Phosphatase 46 (38-126) U/L Total Protein 6.7 (6.3-8.2) g/dL Albumin 3.9 (3.5-5.0) g/dL Globulin 2.8 (1.7-4.1) g/dL Albumin/Globulin Ratio 1.4 (1.0-2.8) Procalcitonin (<0.5) ng/mL Urine Color Urine Appearance Urine pH (4.5-8.0) Ur Specific Wilkinson (1.000-1.035) Urine Protein (Negative) Urine Glucose (UA) (Negative) g/dL Urine Ketones (NEGATIVE) Urine Occult Blood (Negative) Urine Nitrate (Negative) Urine Bilirubin (NEGATIVE) Urine Urobilinogen (0.2) E.U./dL Ur Leukocyte Esterase (NEGATIVE) Urine RBC (0-5/HPF) Urine WBC (0-5/HPF) Ur Squamous Epith Cells (0-5/HPF) Urine Bacteria (None) Ur Culture Indicated? SARS-CoV-2 (PCR) Positive H (Negative) 08/27/21 08/27/21 08/27/21 Range/Units 22:46 22:46 23:00 WBC (4.5-11.0) X10^3/uL RBC (4.0-5.2) X10^6/uL Hgb (12.0-16.0) g/dL Hct (36-46) % MCV (80-100) fL MCH (26-34) PG MCHC (30-36) % RDW (11.6-14.8) % Plt Count (150-400) X10^3/uL Neut % (Auto) (50-75) % Lymph % (Auto) (25-40) % [place] % (Auto) (3-14) % Eos % (Auto) (2-4) % Baso % (Auto) (0-2) % Neut # (Auto) (4650-8129) /uL Lymph # (Auto) (8968-2560) /uL [place] # (Auto) (0-900) /uL Eos # (Auto) (0-450) /uL Baso # (Auto) (0-100) /uL Sodium (137-145) mmol/L Potassium (3.4-5.1) mmol/L Chloride (98-107) mmol/L Carbon Dioxide (22-32) mmol/L BUN (7-17) mg/dL Creatinine (0.52-1.04) mg/dL Estimated GFR (>60) mL/min BUN/Creatinine Ratio (6-22) Glucose (80-110) mg/dL Lactate 0.9 (0.7-2.1) mmol/L Calcium (8.4-10.2) mg/dL Total Bilirubin (0.2-1.3) mg/dL AST (14-36) IU/L ALT (<35) IU/L Alkaline Phosphatase (38-126) U/L Total Protein (6.3-8.2) g/dL Albumin (3.5-5.0) g/dL Globulin (1.7-4.1) g/dL Albumin/Globulin Ratio (1.0-2.8) Procalcitonin 0.05 (<0.5) ng/mL Urine Color Yellow Urine Appearance Clear Urine pH 7.5 (4.5-8.0) Ur Specific [place] 1.015 (1.000-1.035) Urine Protein Trace H (Negative) Urine Glucose (UA) Negative (Negative) g/dL Urine Ketones Trace H (NEGATIVE) Urine Occult Blood Negative (Negative) Urine Nitrate Negative (Negative) Urine Bilirubin Negative (NEGATIVE) Urine Urobilinogen 0.2 (0.2) E.U./dL Ur Leukocyte Esterase Trace H (NEGATIVE) Urine RBC 0-1/hpf (0-5/HPF) Urine WBC 0-1/hpf (0-5/HPF) Ur Squamous Epith Cells 0-1 /hpf (0-5/HPF) Urine Bacteria Occasional (0-1) (None) Ur Culture Indicated? Specimen cultured SARS-CoV-2 (PCR) (Negative) MDM Narrative Medical decision making narrative: Patient has had COVID for about 2-3 weeks she certainly is not requiring oxygen at this time. Blood work is overall reassuring. His she is able to ambulate without any assistance. At this time I see no need for admission. However she states she needs help caring for herself at home she is not able to cook. She and her are is. She does have friends with a are not able to help her very much. She lives on a sail[place]. I called her friend Carole who was unable to pick her up said that she could not stay at her house. Taxi cab are not running at this time and will not take her because of her COVID status. Patient signed out to Dr. Olsen awaiting social Work evaluation Dr olsen: Received turned over. Patient was discharged home. Not hypoxic. No indication for admission to the hospital. Discharge Plan Departure Patient Disposition: Home Clinical Impression: COVID-19 Instructions: DI for COVID-19 (Suspected or Confirmed ) Activity Restrictions/Additional Instructions: Be sure to increase your fluid intake. Take all of your medications as directed. You can take Tylenol for any fevers or body aches. I do recommend that you purchase a pulse oximeter so that you can monitor your oxygen saturations at home. Return to the emergency department for oxygen saturations consistently below 90. Prescriptions: No Action [facility] #8 5 tab PO PRN PRN (Reason: leg cramps) 0RF Osha 1 drp PO PRN PRN (Reason: germs) 0RF acetaminophen 325 mg Tablet 650 mg PO Q6HR PRN (Reason: As Needed For Fever/Mild Pain) Qty: 30 0RF oxycodone 5 mg tablet See Rx Instructions .ROUTE .COMPLEX PRN (Reason: Pain) Qty: 12 0RF Rx Instructions: Take 1-2 tablets every 4hrs as needed for pain not effectively treated by APAP polyethylene glycol 3350 17 gram powder in packet 17 g PO BID Qty: 14 0RF
--- NOTE | 2021-08-27 22:21 | DI.RAD.S_ITS ---
PROCEDURE: XR CHEST 1V INDICATIONS: covid TECHNIQUE: One view of the chest was acquired. COMPARISON: [facility], , CHEST 2 VIEW, 09/16/2014, 19:56. FINDINGS: Surgical changes and devices: None. Lungs and pleura: Minimal left basilar atelectasis and or infiltrate. Underlying diffuse chronic interstitial changes present. Mediastinum: Mediastinal contours appear normal. Heart size is normal. Atherosclerotic vascular calcification noted in the aortic arch. Bones and chest wall: No suspicious bony lesions. Overlying soft tissues appear unremarkable. IMPRESSION: Minimal left basilar atelectasis and infiltrate with underlying diffuse chronic interstitial changes. Dictated by: David Clark M.D. on 08/27/2021 at 23:01 Approved by: David Clark M.D. on 08/27/2021 at 23:04
[2021-08-27] MEDS: SODIUM CHLORIDE 0.9% 1,000 ML 1000 ML IV (22:32)
[2021-08-27 22:55] LABS: Add Manual Diff / Slide Review NO; Basophils Absolute Auto 0 /uL (0-100); Basophils Percent Auto 0.2 % (0-2); Eosinophils Absolute Auto 0 /uL (0-450); Eosinophils Percent Auto 0.2 % (2-4); Hematocrit 39.9 % (36-46); Hemoglobin 13.5 g/dL (12.0-16.0); Lymphocytes Absolute Auto 1000 /uL (1100-4500); Lymphocytes Percent Auto 15.6 % (25-40); Mean Corpuscular HGB Conc 33.9 % (30-36); Mean Corpuscular Volume 85.5 fL (80-100); Monocytes Absolute Auto 900 /uL (0-900); Monocytes Percent Auto 13.5 % (3-14); Neutrophils Absolute Auto 4700 /uL (1500-7000); Neutrophils Percent Auto 70.5 % (50-75); Platelet Count 260 X10^3/uL (150-400); Red Blood Cell Count 4.66 X10^6/uL (4.0-5.2); White Blood Cell Count 6.6 X10^3/uL (4.5-11.0)
[2021-08-27 23:06] LABS: Lactate (Lactic Acid) 0.9 mmol/L (0.7-2.1)
[2021-08-27 23:08] LABS: Alanine Aminotransferase 32 IU/L (<35); Albumin 3.9 g/dL (3.5-5.0); Albumin Globulin Ratio 1.4 (1.0-2.8); Alkaline Phosphatase 46 U/L (38-126); Aspartate Aminotransferase 42 IU/L (14-36); BUN Creatinine Ratio 18.1 (6-22); Bilirubin Total 0.6 mg/dL (0.2-1.3); Blood Urea Nitrogen 15 mg/dL (7-17); Calcium 9.3 mg/dL (8.4-10.2); Carbon Dioxide 30 mmol/L (22-32); Chloride 99 mmol/L (98-107); Estimated Glomerular Filt Rate > 60.0 mL/min (>60); Globulin 2.8 g/dL (1.7-4.1); Glucose 108 mg/dL (80-110); HEMOLYSIS < 15 (0-50); Potassium 4.1 mmol/L (3.4-5.1); Sodium 137 mmol/L (137-145); Total Protein 6.7 g/dL (6.3-8.2)
[2021-08-27 23:15] LABS: Appearance Urine UA CLEAR; Bilirubin Urine UA NEGATIVE (NEGATIVE); Color Urine UA YELLOW; Glucose Urine UA NEGATIVE (Negative); Ketones Urine UA TRACE (NEGATIVE); Leukocyte Esterase Urine UA TRACE (NEGATIVE); Nitrite Urine UA NEGATIVE (Negative); Occult Blood Urine UA NEGATIVE (Negative); Protein Urine UA TRACE (Negative); Specific Gravity Urine UA 1.015 (1.000-1.035); Urobilinogen Urine UA 0.2 E.U./dL (0.2)
[2021-08-27 23:22] LABS: Bacteria Urine Occasional (0-1); Culture Indicated Urine Specimen Cultured; RBC Urine 0-1/HPF (0-5/HPF); Squamous Epithelial Cell Urine 0-1 /HPF (0-5/HPF); WBC Urine 0-1/HPF (0-5/HPF); pH Urine UA 7.5 (4.5-8.0)
[2021-08-27 23:24] LABS: Procalcitonin 0.05 ng/mL (<0.5)
[2021-08-28] VITALS (21 sets, daily range): BP systolic 153–176; BP diastolic 69–79; PULSE 72–112; RESP 18–20; O2SAT 93–98
== END 2021-08-28 10:00 | disposition home or self-care (01) ==
PROVIDERS: Emergency Provider Emergency Medicine
DX: U07.1 COVID-19 (principal); E86.0 Dehydration
CPT/HCPCS: 36415; 71045; 80053; 81001; 83605; 84145; 85025; 87086; 87635; 96360; 99284; C9803